=== PATIENT | female | born 1995 ===

== ENCOUNTER 2021-07-11 07:09 | Outpatient (CLI) | payer MEDICAID ==
[2021-07-11 07:37] VITALS: BP 130/80
[2021-07-11 09:04] LABS: Bacteria,Urine 1+ /HPF (Negative); Mucus,Urine 1+ /HPF
[2021-07-11 09:16] LABS: Color,Urine Yellow (Yellow)
[2021-07-11 09:17] LABS: Bilirubin,Urine Negative (Negative); Blood,Urine Small (Negative); Urobilinogen,Urine < 2.0 mg/dL (<2.0)
[2021-07-11] MEDS ORDERED: LACTATED RINGERS 1,000 ML IV ONE (09:28)
[2021-07-11] MEDS ORDERED: ONDANSETRON 4 MG/2 ML INJ IV ONE (10:00)
== END 2021-07-11 12:21 | disposition home or self-care (01) ==
LOC: TRG 07:09 → APU 07:10 → TRG 12:21
PROVIDERS: ATTEND Obstetrics & Gynecology
DX: O26.893 Other specified pregnancy related conditions, third trimester (principal); M54.50 Low back pain, unspecified; R10.10 Upper abdominal pain, unspecified; O21.2 Late vomiting of pregnancy; Z3A.31 31 weeks gestation of pregnancy
CPT/HCPCS: 59025; 81001; 87086; 96365; J2405; J7120; 96360; 96361; 96366

== ENCOUNTER 2021-09-04 04:57 | Inpatient (IN) | payer MEDICAID ==
[2021-09-04] MEDS ORDERED: ACETAMINOPHEN 325 MG TAB PO PRN (06:32)
[2021-09-04] MEDS ORDERED: miSOPROStol 200 MCG TAB PR PRN (06:32)
[2021-09-04] MEDS ORDERED: LOPERAMIDE 2 MG CAP PO PRN (06:32)
[2021-09-04] MEDS ORDERED: CARBOPROST TROMETHAMINE 250 MCG/1 ML INJ IM PRN (06:32)
[2021-09-04] MEDS ORDERED: OXYTOCIN 10 UNIT/1 ML INJ IM PRN (06:32)
[2021-09-04] MEDS ORDERED: MINERAL OIL 30 ML ORAL LIQD PO PRN (06:32)
[2021-09-04] MEDS ORDERED: TERBUTALINE 1 MG/1 ML INJ SUB-Q PRN (06:32)
[2021-09-04] MEDS ORDERED: ePHEDrine SULFATE 50 MG/1 ML INJ IV PRN ×2 (06:32→14:30)
[2021-09-04] MEDS ORDERED: BUTORPHANOL 2 MG/1 ML INJ IV PRN (06:32)
[2021-09-04] MEDS ORDERED: fentaNYL 100 MCG/2 ML INJ IV PRN (06:32)
[2021-09-04] MEDS ORDERED: AMPICILLIN/NS 2 GM/100 ML 2 GM/100 ML BAG IV ONE (06:32)
[2021-09-04] MEDS ORDERED: METHYLERGONOVINE MALEATE 0.2 MG/ML VIAL IM PRN (06:32)
[2021-09-04] MEDS ORDERED: LACTATED RINGERS 1,000 ML IV SCH (06:45)
[2021-09-04] MEDS ORDERED: OXYTOCIN DRIP 30 UNITS/500 ML BAG IV SCH (07:00)
[2021-09-04 07:53] LABS: Hematocrit 42.2 % (30.3-42.9); Hemoglobin 14.3 gm/dl (10.1-14.3); Mean Corpuscular HGB Conc 34 % (30-34); Mean Corpuscular Volume 89 fl (79-97); Platelet Count 189 K/mm3 (140-440); Red Blood Count 4.74 M/mm3 (3.65-5.03); Red Cell Distribution Width 14.8 % (13.2-15.2)
--- NOTE | 2021-09-04 10:16 | History and Physical Report ---
History of Present Illness Date of examination: 09/04/21 Date of admission: 09/04/21 06:44 Chief complaint: Painful regular ctxs History of present illness: 26 yo, G1 @ 39 wks, initiated care with [employer] at 9.6 wks. has been complicated by threatened and +GBS status. Presented to [facility] this AM with reports of painful ctxs that began yesterday and got worse overnight. Reports + FM. Denies VB or LOF. Labs: O+, antibody negative; rubella immune; VDRL negative; urine culture negative; HBsAg negative; Hep C negative; HSV2 negative; HIV negative; GC/Chlamydia/Trichomonas negative; 1 hr gtt 150; 3hr gtt normal; GBS positive. 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 denies: alcohol abuse, prescription drug abuse, IV drug use - Obstetrical History Expected Date of Delivery: 09/11/21 Actual Gestation: 39 Week(s) 0 Day(s) : 1 Para: 0 Hx # Term Pregnancies: 0 Number of Pregnancies: 0 Spontaneous Abortions: 0 Induced : 0 Number of Living Children: 0 Medications and Allergies Allergies Allergy/AdvReac Type Severity Reaction Status Date / Time No Known Allergies Allergy Verified 07/11/21 09:29 Home Medications Medication Instructions Recorded Confirmed Last Taken Type Sulfamethoxazole/Trimethoprim 1 each PO BID #6 tablet 01/02/15 Unknown Rx [Bactrim DS TAB] Active Meds: Active Medications Acetaminophen (Acetaminophen 325 Mg Tab) 650 mg PO Q4H PRN PRN Reason: Pain, Mild (1-3) Butorphanol Tartrate (Butorphanol 2 Mg/1 Ml Inj) 1 mg IV Q2H PRN PRN Reason: Pain, Moderate(4-6) LABOR PAIN Carboprost Tromethamine (Carboprost Tromethamine 250 Mcg/1 Ml Inj) 250 mcg IM ONCE PRN PRN Reason: Uterine Bleeding Ephedrine Sulfate (Ephedrine Sulfate 50 Mg/1 Ml Inj) 10 mg IV Q2M PRN PRN Reason: Hypotension Fentanyl (Fentanyl 100 Mcg/2 Ml Inj) 100 mcg IV Q2H PRN PRN Reason: Pain,Severe (7-10) LABOR PAIN Lactated Ringer's (Lactated Ringers) 1,000 mls @ 125 mls/hr IV DIRECT MARY Oxytocin/Sodium Chloride (Pitocin/Ns 30 Unit/500ml) 30 units in 500 mls @ 40 mls/hr IV TITR MARY; Protocol Ampicillin Sodium (Ampicillin/Ns 1 Gm/50 Ml) 1 gm in 50 mls @ 100 mls/hr IV Q4H MARY; Protocol Loperamide HCl (Loperamide 2 Mg Cap) 2 mg PO ONCE PRN PRN Reason: give with Hemabate Methylergonovine Maleate (Methylergonovine Maleate 0.2 Mg/Ml Vial) 0.2 mg IM ONCE PRN PRN Reason: Uterine Bleeding Mineral Oil (Mineral Oil 30 Ml Oral Liqd) 30 ml PO QHS PRN PRN Reason: Constipation Misoprostol (Misoprostol 200 Mcg Tab) 800 mcg [place] ONCE PRN PRN Reason: Uterine Bleeding Oxytocin (Oxytocin 10 Unit/1 Ml Inj) 10 unit IM ONCE PRN PRN Reason: Uterine Bleeding Terbutaline Sulfate (Terbutaline 1 Mg/1 Ml Inj) 0.25 mg SUB-Q ONCE PRN PRN Reason: Hyperstimulation/Hypertonicity Review of Systems All systems: negative Genitourinary: contractions - Vital Signs Vital signs: Vital Signs Pulse Ox 93 07/11/21 12:11 Temp Pulse Resp BP Pulse Ox 98.3 F 73 16 131/87 96 09/04/21 09:12 09/04/21 10:09 09/04/21 09:12 09/04/21 10:02 09/04/21 10:09 - Physical Exam Breasts: Positive: normal Cardiovascular: Normal S2 Lungs: Positive: Normal air movement Abdomen: Positive: other (gravid) Genitourinary (Female): Positive: normal external genitalia, normal perenium Uterus: Positive: enlarged (S=D) Extremities: Positive: edema (slight, BLE) Deep Tendon Reflex Grade: Normal +2 - Obstetrical FHR: category 1 Uterine Contraction Monitor Mode: External Cervical Dilatation: 4.5 (vertex) Cervical Effacement Percentage: 70 station: -2 Uterine Contraction Frequency (min): 3-4 Uterine Contraction Pattern: Irregular Uterine Tone Measurement Phase: Resting Uterine Contraction Intensity: Mild Results Result Diagrams: 09/04/21 07:15 All other labs normal. Assessment and Plan - Patient Problems (1) Active labor at term Current Visit: Yes Status: Acute Plan to address problem: AROM @ 0904, clear fluids, tolerated well Pain meds as desired per orders Anticipate (2) Positive GBS test Current Visit: Yes Status: Acute Plan to address problem: Continue GBS prophylaxis
[2021-09-04] MEDS ORDERED: AMPICILLIN/NS 1 GM/50 ML 1 GM/50 ML BAG IV SCH (11:00)
[2021-09-04] MEDS: OXYTOCIN DRIP 30 UNITS/500 ML BAG IV SCH ×3 (11:49→14:37)
--- NOTE | 2021-09-04 14:16 | Anesthesia Consultation ---
Anesthesia Consult and Med Hx Date of service: 09/04/21 - Airway Anesthetic Teeth Evaluation: Good ROM Head & Neck: Adequate Mental/Hyoid Distance: Adequate Mallampati Class: Class II Intubation Access Assessment: Good - Cardiac Exam Cardiac Exam: RRR - Pre-Operative Health Status ASA Pre-Surgery Classification: ASA2 Proposed Anesthetic Plan: Epidural, Spinal - Pulmonary Hx Asthma: No COPD: No Hx Pneumonia: No - Cardiovascular System Hx Hypertension: No - Central Nervous System Hx Seizures: No Hx Psychiatric Problems: No - Endocrine Hx Renal Disease: No Hx End Stage Renal Disease: No Hx Hypothyroidism: No Hx Hyperthyroidism: No - Hematic Hx Anemia: No Hx Sickle Cell Disease: No - Other Systems Hx Alcohol Use: No Hx Obesity: Yes
--- NOTE | 2021-09-04 14:29 | Progress Note ---
Spinal Anesthesia Block - Spinal Anesthesia Block Start Time: 13:27 Stop Time: 13:59 Performed by:: SACHIN GANDARA Procedure: Combined Spinal-Epidural Patient is requesting epidural for labor and pain. H&P, labs were reviewed. Patient IDed, all questions and concerns were answered, and consent was signed. Timeout was performed at bedside. Patient in sitting position. Sterile prep and drape was performed. 3ml of 1% lidocaine skin wheal at L[3]- L [4]. 17- gauge Tuohy epidural needle was inserted, but removed. 2ml of 1% Lidocaine to form skin wheal at L2-L3 interspace. Advanced Tuohy epidural needle to loss of resistance with saline technique 6 cm. 25G spinal needle introduced through epidural needle to the spinal space. Clear CSF. Injected .1ml of Precedex in the spinal space. Negative CSF negative blood. Epidural catheter advanced to 15 centimeters. Negative aspiration, test dose 3cc 1.5% Lidocaine with epi - negative. Sterile dressing applied. Patient tolerated procedure.
[2021-09-04] MEDS ORDERED: NALOXONE 0.4 MG/1 ML INJ IV PRN (14:30)
[2021-09-04] MEDS ORDERED: fentaNYL-BUPIV 2 MCG/ML-0.125% 200 MCG/100 ML BAG EPIDURAL SCH (15:00)
[2021-09-04] MEDS ORDERED: LANOLIN/ZINC/DIMETHICONE (LANSINOH) 7 GM TP PRN (18:29)
[2021-09-04] MEDS ORDERED: diphenhydrAMINE 25 MG CAP PO PRN (18:29)
[2021-09-04] MEDS ORDERED: WITCH HAZEL/ GLYCERIN PAD TP PRN (18:29)
[2021-09-04] MEDS ORDERED: MAGNESIUM HYDROXIDE (MOM) ORAL LIQD UDC PO PRN (18:29)
[2021-09-04] MEDS ORDERED: PROMETHAZINE 25 MG TAB PO PRN (18:29)
[2021-09-04] MEDS ORDERED: ONDANSETRON 4 MG/2 ML INJ IV PRN (18:29)
[2021-09-04] MEDS ORDERED: oxyCODONE /ACETAMINOPHEN 5-325MG TAB PO PRN (18:29)
--- NOTE | 2021-09-04 18:45 | Procedure Note ---
OB Delivery Note - Delivery Date of Delivery: 09/04/21 (1276) Surgeon: NEIL AARON (CNM) Estimated blood loss: 300cc - Vaginal Delivery presentation: vertex Delivery position: OA (WILLY) Intrapartum events: none Delivery induction: none Delivery augmentation: rupture of membranes (AROM @ 0902) Delivery monitor: external FHT, external uterine Route of delivery: Delivery placenta: spontaneous (1800, bardales) Delivery cord: other (cord around feet, reduced at perineum) Episiotomy: none Delivery laceration: 2nd degree (perineal, repaired) Delivery repair: vicryl (3.0 -CT1) Anesthesia: epidural Delivery comments: of viable, quiet, slightly stunned female infant, placed directly to maternal abdomen. Manual drying and stimulation produced spontaneous cry, bulb suctioned by JOSSELINE team nurse. Cord double clamped, cut by myself and infant handed over to JOSSELINE nurse for evaluation. Placenta spontaneously delivered, disposed per hospital policy. Uterus firm @ U-2, hemostasis maintained. Perineum with 2nd degree laceration, repaired. Mother and baby, safe stable and left in care of RN. - A at 1 minute: 8 at 5 minutes: 9 Gender: Female (Weight: 3030 gms (6lbs 11ozs) 20 inches)
[2021-09-04] MEDS ORDERED: BENZOCAINE/MENTHOL 20/0.5% TOP SPRAY 56 GM TP PRN (21:42)
[2021-09-04] MEDS: IBUPROFEN 800 MG TAB PO SCH (21:56)
--- NOTE | 2021-09-05 07:38 | Progress Note ---
Assessment and Plan A: PPD#1 s/p at term Obesity P: Routine care Anticipate discharge tomorrow Subjective - Subjective Date of service: 09/05/21 Principal diagnosis: s/p at term Interval history: Pt reports some back pain overnight but otherwise feels well. Patient reports: appetite normal, voiding normally, ambulating normally, no dizzy ambulation : doing well Objective - Vital Signs Latest vital signs: Vital Signs Temp Pulse Resp BP BP Pulse Ox Pulse Ox 09/05/21 01:35 98.2 F 66 20 115/72 98 09/04/21 22:59 97 09/04/21 21:56 16 09/04/21 19:14 107 H 97 09/04/21 19:09 113 H 97 09/04/21 19:06 96 H 126/71 09/04/21 19:04 105 H 97 09/04/21 18:59 109 H 98 09/04/21 18:54 120 H 97 09/04/21 18:51 105 H 130/79 09/04/21 18:49 121 H 98 09/04/21 18:44 120 H 98 09/04/21 18:39 129 H 98 09/04/21 18:34 118 H 98 09/04/21 18:30 98 F 09/04/21 18:29 112 H 98 09/04/21 18:24 123 H 98 09/04/21 18:21 96 H 112/64 09/04/21 18:19 115 H 99 09/04/21 18:14 96 H 98 09/04/21 18:11 88 111/63 09/04/21 18:09 101 H 99 09/04/21 18:04 99 H 98 09/04/21 17:59 109 H 98 09/04/21 17:54 167 H 96 09/04/21 17:49 95 H 97 09/04/21 17:44 110 H 99 09/04/21 17:39 132 H 98 09/04/21 17:34 107 H 98 09/04/21 17:29 142 H 99 09/04/21 17:24 107 H 96 09/04/21 17:19 100 H 98 09/04/21 17:15 83 93 09/04/21 17:14 86 98 09/04/21 17:09 90 97 09/04/21 17:04 86 99 09/04/21 17:01 80 94 09/04/21 16:59 83 98 09/04/21 16:54 80 99 09/04/21 16:49 83 99 09/04/21 16:44 104 H 94 09/04/21 16:39 84 100 09/04/21 16:34 93 H 95 09/04/21 16:29 81 98 09/04/21 16:28 87 93 09/04/21 16:24 96 H 98 09/04/21 16:21 86 91 09/04/21 16:19 86 95 09/04/21 16:16 88 93 09/04/21 16:14 93 H 98 09/04/21 16:09 80 98 09/04/21 16:04 83 98 09/04/21 16:00 114 H 94 09/04/21 15:59 85 98 09/04/21 15:54 80 98 09/04/21 15:50 90 91 09/04/21 15:49 82 98 09/04/21 15:44 106 H 97 09/04/21 15:39 107 H 99 09/04/21 15:34 86 95 09/04/21 15:33 87 94 09/04/21 15:29 94 H 100 09/04/21 15:24 87 98 09/04/21 15:19 82 99 09/04/21 15:18 83 90 09/04/21 15:14 82 95 09/04/21 15:09 80 99 09/04/21 15:07 80 147/94 09/04/21 15:04 87 98 09/04/21 14:59 81 97 09/04/21 14:54 79 97 09/04/21 14:51 77 137/87 09/04/21 14:49 80 99 09/04/21 14:44 80 98 09/04/21 14:39 79 97 09/04/21 14:36 74 147/87 09/04/21 14:34 81 99 09/04/21 14:29 80 105/57 97 09/04/21 14:24 78 121/65 97 09/04/21 14:19 82 143/81 99 09/04/21 14:14 74 110/62 98 09/04/21 14:09 73 115/64 99 09/04/21 14:04 79 98 06 13:59 73 99 06 13:54 88 149/78 99 06 13:51 96 H 162/101 09/04/21 13:49 88 99 09/04/21 13:45 81 159/94 09/04/21 13:44 84 98 09/04/21 13:39 84 157/98 99 09/04/21 13:35 80 153/91 09/04/21 13:34 72 98 09/04/21 13:32 84 171/93 06 13:29 87 98 09/04/21 13:25 90 155/98 09/04/21 13:24 73 100 09/04/21 13:19 94 H 97 09/04/21 13:14 81 99 09/04/21 13:09 87 97 09/04/21 13:04 82 98 09/04/21 12:59 88 99 09/04/21 12:55 79 93 09/04/21 12:54 88 99 09/04/21 12:49 83 98 09/04/21 12:44 83 98 09/04/21 12:39 79 95 09/04/21 12:38 78 94 09/04/21 12:34 79 98 09/04/21 12:29 79 98 09/04/21 12:24 83 99 09/04/21 12:19 77 98 09/04/21 12:14 83 97 09/04/21 12:09 85 97 09/04/21 12:04 86 97 09/04/21 11:59 82 98 09/04/21 11:54 87 99 09/04/21 11:49 87 97 06 11:48 75 129/79 06 11:44 84 98 09/04/21 11:39 87 97 09/04/21 11:34 86 97 09/04/21 11:29 79 100 0602 11:24 84 98 09/04/21 11:19 74 98 0602 11:14 86 99 06 11:10 80 94 09/04/21 11:09 90 97 0602 11:04 84 133/83 97 06 10:59 76 98 06 10:54 69 99 06 10:49 83 97 06 10:47 76 131/86 06 10:44 76 99 06 10:39 80 96 06 10:34 84 95 09/04/21 10:33 78 120/91 06 10:29 83 100 09/04/21 10:24 84 98 06 10:19 93 H 99 09/04/21 10:14 77 96 06 10:09 73 96 09/04/21 10:07 84 94 06 10:04 76 96 06 10:02 70 131/87 09/04/21 09:59 80 97 06 09:54 76 97 06 09:49 77 98 09/04/21 09:48 75 134/90 09/04/21 09:44 79 99 09/04/21 09:39 76 100 09/04/21 09:34 76 97 06 09:33 74 155/88 09/04/21 09:29 74 98 06 09:24 84 97 09/04/21 09:19 70 99 06 09:17 81 131/86 09/04/21 09:14 76 99 06 09:13 71 125/82 09/04/21 09:12 98.3 F 80 16 125/82 98 09/04/21 09:09 78 98 98 06 09:04 78 98 06 09:02 77 138/87 06 08:59 74 99 09/04/21 08:54 78 99 06 08:49 75 97 06 08:47 77 136/89 93 06 08:44 76 98 0602 08:39 79 97 0602 08:34 76 134/85 96 06 08:29 76 97 06 08:24 74 96 06 08:19 79 97 06 08:18 71 137/81 06 08:14 78 98 06 08:09 88 98 06 08:04 87 98 09/04/21 07:59 76 98 06 07:54 81 98 09/04/21 07:51 75 138/90 09/04/21 07:49 75 99 Intake and Output 09/04/21 09/05/21 09/05/21 22:59 06:59 14:59 Intake Total 240 Output Total 600 300 Balance -600 -60 Intake: Oral 240 Output: Urine 600 300 Indwelling Catheter 600 Void 300 Other: Total, Intake Amount 240 Total, Output Amount 600 300 Estimated Blood Loss 300 - Exam Breasts: Present: deferred Abdomen: Present: soft, distention (moderate ) Uterus: Present: fundal height at umbilicus Extremities: Present: edema (trace)
--- NOTE | 2021-09-05 07:40 | Discharge Summary ---
Providers - Providers Date of Admission: 09/04/21 06:44 Date of discharge: 09/06/21 Attending physician: JOSSELINE PEREZ 09/04/21 18:36 Consult to Motor Vehicle Examiner [CONS] Routine Reason For Exam: assistance with , SNS Primary care physician: JOSSELINE PEREZ Hospitalization Reason for admission: active labor Delivery: Procedure details: Please see delivery note Episiotomy: none Laceration: 2nd degree Incision: normal Other procedures: none complications: none Discharge diagnosis: IUP at term delivered Sasser baby: female Hospital course: This patient was admitted in active labor at term and went on to have a spontaneous vaginal delivery which she tolerated well. The remainder of her course was uncomplicated and she met discharge criteria on day #2. She will follow-up in the office in 6 weeks. Condition at discharge: Stable Disposition: 01 HOME / SELF CARE / HOMELESS - Discharge Diagnoses (1) Obesity Status: Acute Qualifiers: Obesity type: unspecified obesity type Obesity classification: adult class 2 (BMI 35 - 39.9) Serious obesity comorbidity presence: unspecified whether serious comorbidity present Body mass index: BMI 37.0-37.9 Qualified Code(s): E66.9 - Obesity, unspecified; Z68.37 - Body mass index [BMI] 37.0-37.9, adult (2) Term of female Status: Acute (3) Active labor at term Status: Acute (4) Positive GBS test Status: Acute Plan - Discharge Medications Prescriptions: Ibuprofen [Motrin 800 MG tab] 800 mg PO Q8HR PRN #30 tablet PRN Reason: Pain, Moderate (4-6) - Provider Discharge Summary Activity: routine, no sex for 6 weeks, no heavy lifting 4 weeks, no strenuous exercise Diet: routine Instructions: routine Additional instructions: [] Smoking cessation referral if applicable(refer to patient education folder for contact #) [] Refer to [facility] Booklet Call your doctor immediately for: * Fever > 100.5 * Heavy vaginal bleeding ( >1 pad per hour) * Severe persistent headache * Shortness of breath * Reddened, hot, painful area to leg or breast * Drainage or odor from incision. * Keep incision clean and dry at all times and follow doctor's instructions regarding bathing/showering - Follow up plan Follow up: JOSSELINE PEREZ MD [Primary Care Provider] - 6 Weeks
[2021-09-05 07:58] LABS: Hematocrit 34.6 % (30.3-42.9); Hemoglobin 11.5 gm/dl (10.1-14.3)
[2021-09-05] MEDS ORDERED: PRENATAL VIT27-FE FUMARATE-FOLIC ACID VIT TAB PO SCH (10:00)
[2021-09-05] MEDS: DOCUSATE SODIUM 100 MG CAP PO SCH ×2 (13:40→23:15)
[2021-09-05] MEDS: IBUPROFEN 800 MG TAB PO SCH (13:40)
--- NOTE | 2021-09-05 16:01 | Post Anesthesia Evaluation ---
- Post Anesthesia Evaluation Patient Participated: Yes Airway Patent: Yes Stable Respiratory Function: Yes Nausea/Vomiting: No Temp > 96.8F: Yes Pain Manageable: Yes Adequeate Hydration: Yes Anesthesia Complications: No Block Receding Appropriately: Yes Patient on Ventilator: No Other Comments: Patient has ambulated, consumed solids and/or fluids. No pain, redness, or swelling at site. Block is receding appropriately. Pt has no complaints or questions regarding anesthesia.
[2021-09-06] MEDS: IBUPROFEN 800 MG TAB PO SCH (06:15)
[2021-09-06 12:06] VITALS: BP 138/86
== END 2021-09-06 11:49 | disposition home or self-care (01) | DRG 775 ==
LOC: TRG 04:57 → APU 04:58 → TRG 06:43 → APU 06:44 → OBSVTOIN 06:44 → LD 07:41 → OB 20:54
PROVIDERS: ADMIT Obstetrics & Gynecology; ATTEND Obstetrics & Gynecology
PROC: 10E0XZZ Delivery of Products of Conception, External Approach (ICD-10-PCS; principal; 2021-09-04)
PROC: 10907ZC Drainage of Amniotic Fluid, Therapeutic from Products of Conception, Via Natural or Artificial Opening (ICD-10-PCS; 2021-09-04)
PROC: 0KQM0ZZ Repair Perineum Muscle, Open Approach (ICD-10-PCS; 2021-09-04)
PROC: 3E0R3BZ Introduction of Anesthetic Agent into Spinal Canal, Percutaneous Approach (ICD-10-PCS; 2021-09-04)
PROC: 00HU33Z Insertion of Infusion Device into Spinal Canal, Percutaneous Approach (ICD-10-PCS; 2021-09-04)
DX: O69.89X0 Labor and delivery complicated by other cord complications, not applicable or unspecified (principal); O99.824 Streptococcus B carrier state complicating childbirth; Z3A.39 39 weeks gestation of pregnancy; Z20.822 Contact with and (suspected) exposure to COVID-19; O99.214 Obesity complicating childbirth; O70.1 Second degree perineal laceration during delivery; Z37.0 Single live birth; Z87.891 Personal history of nicotine dependence; Z80.8 Family history of malignant neoplasm of other organs or systems
CPT/HCPCS: 36415; 85014; 85018; 85027; 86592; 86850; 86900; 86901; 99211; G0378; J3490; G0463; J0290; J2590; U0003

== ENCOUNTER 2021-09-09 09:11 | Emergency (ER) | payer MEDICAID ==
[2021-09-09] MEDS ORDERED: HYDROcodone/ACETAMINOPHEN 5-325 MG TAB PO ONE (13:54)
--- NOTE | 2021-09-09 13:55 | Emergency Department Report ---
ED Headache HPI - General Chief Complaint: Headache Stated Complaint: SEVERE HEADACHE Time Seen by Provider: 09/09/21 13:52 Source: patient Exam Limitations: no limitations - History of Present Illness Initial Comments: Patient is a 26-year-old female that comes to the emergency room 2 days after delivering her baby. Dr. Zaman delivered her at [facility] without any difficulty. Patient states that she did get an epidural but it only gave her transient numbness of her left lower extremity. And never relieved her pain at the time of delivery. She comes in now with a headache that is worse when she is sitting up or standing. She is neurologically intact. She does not have hypertension. She denies any trauma. [id number] Motrin has not helped with her pain. So Dr. Zaman has sent her to the emergency room. Timing/Duration: other Quality: severe Recent Head Trauma: no recent headache/trauma, frequent headaches, chronic headaches, occasional headaches, head trauma < 24 hrs ago, head trauma > 24 hrs ago, other Modifying Factors: worse with: cold therapy, exposure to light, immobilization, medication, movement, rest, other Associated Symptoms: denies: denies symptoms, confusion, fatigue, facial pain, fever/chills, flushing, loss of consciousness, nausea/vomiting, nasal congestion, nasal drainage, numbness in legs/feet, rash, seizures, sinus infection, stiff neck, vision changes, weakness, other Allergies/Adverse Reactions: Allergies No Known Allergies Allergy (Verified 07/11/21 09:29) Home Medications: Ambulatory Orders Ibuprofen [Motrin 800 MG tab] 800 mg PO Q8HR PRN #30 tablet 09/05/21 HYDROcodone/APAP 5-325 [Payne 5/325] 1 each PO Q6HR PRN #10 tablet 09/09/21 ED Review of Systems ROS: Stated complaint: SEVERE HEADACHE Other details as noted in HPI Comment: All other systems reviewed and negative ED Past Medical Hx - Past Medical History Previous Medical History?: No Hx Hypertension: No Hx Congestive Heart Failure: No Hx Diabetes: No Hx Deep Vein Thrombosis: No Hx Renal Disease: No Hx Sickle Cell Disease: No Hx Seizures: No Hx Asthma: No Hx COPD: No Hx HIV: No - Surgical History Past Surgical History?: No - Family History Family history: no significant - Social History Smoking Status: Former Smoker Substance Use Type: None - Medications Home Medications: Home Medications Medication Instructions Recorded Confirmed Last Taken Type Ibuprofen [Motrin 800 MG tab] 800 mg PO Q8HR PRN #30 tablet 09/05/21 Unknown Rx HYDROcodone/APAP 5-325 [Payne 1 each PO Q6HR PRN #10 tablet 09/09/21 Unknown Rx 5/325] ED Physical Exam - General Limitations: No Limitations General appearance: alert, in no apparent distress - Head Head exam: Present: atraumatic, normocephalic - Eye Eye exam: Present: normal appearance - ENT ENT exam: Present: mucous membranes moist - Neck Neck exam: Present: normal inspection - Respiratory Respiratory exam: Present: normal lung sounds bilaterally. Absent: respiratory distress - Cardiovascular Cardiovascular Exam: Present: regular rate, normal rhythm. Absent: systolic murmur, diastolic murmur, rubs, gallop - GI/Abdominal GI/Abdominal exam: Present: soft, normal bowel sounds - Extremities Exam Extremities exam: Present: normal inspection - Back Exam Back exam: Present: normal inspection - Neurological Exam Neurological exam: Present: alert, oriented X3 - Psychiatric Psychiatric exam: Present: normal affect, normal mood - Skin Skin exam: Present: warm, dry, intact, normal color. Absent: rash ED Course Vital Signs 09/09/21 09:48 Temperature 98.0 F Pulse Rate 88 Respiratory 18 Rate Blood Pressure 146/98 O2 Sat by Pulse 97 Oximetry ED Medical Decision Making - Medical Decision Making Vital Signs 09/09/21 09:48 Temperature 98.0 F Pulse Rate 88 Respiratory 18 Rate Blood Pressure 146/98 O2 Sat by Pulse [address] Zaman to send patient to the emergency room for evaluation for spinal hea dache after delivery. 1410 anesthesia at bedside 1445 anesthesia has seen and evaluated the patient. Patient has elected for conservative care of her headaches. Patient being discharged home with discharge plan of care including diet, activity, medications and follow-up. She is being discharged home with her mother who help in caring for the baby. Patient understands she can return if her headache gets so bad that she decides that she wants a blood patch. Patient verbalizes understanding of plan of care. - Differential Diagnosis Spinal headache Critical care attestation.: If time is entered above; I have spent that time in minutes in the direct care of this critically ill patient, excluding procedure time. ED Disposition Clinical Impression: Headache Qualifiers: Headache type: unspecified Disposition: HOME / SELF CARE / HOMELESS Is pt being admited?: No Does the pt Need Aspirin: No Condition: Stable Instructions: Spinal Anesthesia and Epidural Anesthesia, Care After Additional Instructions: Follow-up with your PUBLIC SAFETY DISPATCHER in the morning. Continue your [id number] medications for pain. Hydrocodone can be used for severe pain. Prescriptions: HYDROcodone/APAP 5-325 [Payne 5/325] 1 each PO Q6HR PRN #10 tablet PRN Reason: Pain Referrals: KORI MUELLER MD [Staff Physician] - 3-5 Days Time of Disposition: 13:54
--- NOTE | 2021-09-09 15:04 | Event Note ---
Date: 09/09/21 (PDPH) Called to ED for post- patient complaining of headache. Patient initially evaluated by LUANA Martinez prior to my exam. Patient delivered vaginally at [facility] on 09/04/21 w/ CSE for labor analgesia. CSE procedure note reviewed: no mention of obvious dural puncture with toughy needle. Headache started prior to d/c. Headache is noted to be worse with sitting or standing and relieved with lying flat. No neurologic symptoms. While inpatient, percocet helped with the headache but since d/c she has only taken ibuprofen which has not provided relief. VS in ED triage significant for SBP 140s (no prior hx HTN or pre-eclampsia). Risks/benefits of blood patch vs conservative management were discussed with the patient. Patient is hesitant about a blood patch since she reports difficulty with initial epidural placement. She has help at home with caring for her baby. I discussed the expected time course for resolution of symptoms with conserv ative management. Patient elects for conservative management at this time, to include bed rest, oral hydration, caffeine intake, and oral pain medicines. Patient was advised that should symptoms worsen or fail to improve, she should return to [facility] for evaluation and blood patch placement. She verbalized understanding and was in agreement with this plan. Plan discussed with ED FERNANDO.
[2021-09-09 16:04] VITALS: BP 124/78
== END 2021-09-09 15:56 | disposition home or self-care (01) ==
LOC: ED 09:11
DX: R51.9 Headache, unspecified (principal); Z87.891 Personal history of nicotine dependence
CPT/HCPCS: 99282